=== PATIENT | male | born 1960 | race Caucasian/White ===

== ENCOUNTER 2021-02-10 14:46 | Outpatient (CLI) | payer BC | END 2021-02-10 14:47 | disposition home or self-care (01) | LOC: ULT 14:46 | PROVIDERS: ATTEND Family Medicine | DX: R60.0 Localized edema (principal); L03.116 Cellulitis of left lower limb ==

== ENCOUNTER 2021-11-30 14:44 | Outpatient (CLI) | payer BC | END 2021-11-30 14:45 | disposition home or self-care (01) | LOC: SCSRAD 14:44 | PROVIDERS: ATTEND Family Medicine | DX: Z00.00 Encounter for general adult medical examination without abnormal findings (principal); R06.02 Shortness of breath | CPT/HCPCS: 71046 ==

== ENCOUNTER 2023-05-31 13:58 | Emergency (ER) | payer BC, OTHER ==
[2023-05-31 14:49] LABS: #Eosinphils 0.2 thou/uL (0.0-0.7); #Monocytes 0.8 thou/uL (0.11-0.59); #Neutrophils 5.4 thou/uL (1.40-6.50); %Basophils 0.4 % (0.0-1.0); %Eosinophils 2.4 % (0.0-10.0); %Lymphocytes 22.4 % (21.0-51.0); %Monocytes 9.3 % (0.0-10.0); Hematocrit 41.7 % (42.0-52.0); Hemoglobin 14.5 g/dL (14.0-18.0); Mean Corpuscular HGB CONC 34.8 g/dL (32.0-36.0); Mean Corpuscular Hemoglobin 32.7 pg (27.0-31.0); Mean Corpuscular Volume 93.9 fl (78.0-98.0); Mean Platelet Volume 9.5 fL (7.4-10.4); Platelet Count 187 10x3/uL (130-400); RBC Distribution Width 12.6 % (11.5-14.5); Red Blood Cell (RBC) Count 4.44 mill/uL (4.70-6.10); White Blood Cell (WBC) Count 8.3 10x3/uL (4.8-10.8)
[2023-05-31] MEDS ORDERED: Iopamidol-370 76% 500 ML MDV (1 ML CHARGE) ONE (14:58)
[2023-05-31 15:14] LABS: ALT (SGPT) 26 U/L (8-55); AST (SGOT) 24 U/L (5-34); Albumin 4.1 g/dL (3.4-4.8); Alkaline Phosphatase 86 U/L (40-110); Anion Gap 13 mmol/L (10-20); BUN (Urea Nitrogen) 10 mg/dL (8.4-25.7); Bilirubin, Total 0.5 mg/dL (0.2-1.2); Calc. Creatinine Clearance 0 mL/min (70-130); Calcium 9.3 mg/dL (7.8-10.44); Carbon Dioxide 29 mmol/L (23-31); Chloride 95 mmol/L (98-107); Estimated GFR 68; Globulin 3.3 g/dL (2.4-3.5); Glucose 382 mg/dL (80-115); Potassium 4.5 mmol/L (3.5-5.1); Protein, Total 7.4 g/dL (5.8-8.1); Sodium 132 mmol/L (136-145)
[2023-05-31 15:19] LABS: Troponin I 0.016 ng/mL (< 0.028)
== END 2023-05-31 15:56 | disposition home or self-care (01) ==
LOC: ERS 13:58
DX: R06.00 Dyspnea, unspecified (principal); I25.10 Atherosclerotic heart disease of native coronary artery without angina pectoris; R03.0 Elevated blood-pressure reading, without diagnosis of hypertension; E11.65 Type 2 diabetes mellitus with hyperglycemia; F17.290 Nicotine dependence, other tobacco product, uncomplicated; Z79.899 Other long term (current) drug therapy; Z51.81 Encounter for therapeutic drug level monitoring; R06.02 Shortness of breath; R60.0 Localized edema; R25.2 Cramp and spasm
CPT/HCPCS: 36415; 36416; 71275; 80048; 83735; 83880; 84484; 85025; 85379; 93005; Q9967

== ENCOUNTER 2023-06-14 08:00 | Inpatient (IN) | payer OTHER ==
[2023-06-14 08:10] VITALS: BMI 36.9
[2023-06-14 09:02] LABS: Hematocrit 44.3 % (38.8-50.0); Hemoglobin 16.3 g/dL (13.5-17.5); Mean Corpuscular HGB CONC 36.8 g/dL (32.0-36.0); Mean Corpuscular Hemoglobin 33.1 pg (27.0-33.0); Mean Corpuscular Volume 89.9 fl (81.2-95.1); Mean Platelet Volume 9.5 fl (7.4-10.4); Platelet Count 265 10x3/uL (150-450); RBC Distribution Width 11.9 % (11.5-14.5); Red Blood Cell (RBC) Count 4.93 10x6/uL (4.32-5.72); White Blood Cell (WBC) Count 9.4 10x3/uL (3.5-10.5)
[2023-06-14 09:20] LABS: Anion Gap 14 mmol/L (10-20); BUN (Urea Nitrogen) 11 mg/dL (8.4-25.7); Calc. Creatinine Clearance 0 mL/min (70-130); Calcium 9.6 mg/dL (7.8-10.44); Carbon Dioxide 27 mmol/L (23-31); Chloride 87 mmol/L (98-107); Estimated GFR 79; Glucose 243 mg/dL (80-115); Potassium 3.9 mmol/L (3.5-5.1); Sodium 124 mmol/L (136-145)
[2023-06-14 09:48] LABS: PTT 27.4 sec (22.0-33.0); Prothrombin Time 10.7 sec (9.5-12.1)
[2023-06-17] MEDS ORDERED: EPINEPHrine 1 MG/ML VIAL ONE (06:29)
[2023-06-17] MEDS ORDERED: Albumin 5% 500 ML ONE (06:29)
[2023-06-17] MEDS ORDERED: Dexamethasone 4 mg/ml Vial ONE (06:29)
[2023-06-17] MEDS ORDERED: Bupivacaine PF 0.5% 30 ML VIAL ONE (06:29)
[2023-06-17] MEDS ORDERED: Heparin 10,000 UNITS/1 ML VIAL 30,000 UNITS in Sodium Chloride 0.9% 1,000 ML FS SCH (06:45)
[2023-06-17] MEDS ORDERED: Lidocaine 1% MPF 2 ML VIAL ONE (07:07)
[2023-06-17] MEDS ORDERED: Midazolam HCl 2 mg/2 ml Vial ONE ×4 (07:07→11:28)
[2023-06-17] MEDS ORDERED: Sodium Chloride 0.9% 10 ML ONE (07:11)
[2023-06-17] MEDS ORDERED: Heparin 5,000 UNITS/ML VIAL ONE (07:18)
[2023-06-17] MEDS ORDERED: Thrombin 5000 UNITS/5 ML VIAL ONE (07:18)
[2023-06-17] MEDS ORDERED: Magnesium 5 GM/10 ML VIAL ONE (07:18)
[2023-06-17] MEDS ORDERED: Mannitol 12.5 GM/50 ML ONE (07:18)
[2023-06-17] MEDS ORDERED: Potassium Chloride 60 mEq (30 mL) VIAL ONE (07:18)
[2023-06-17] MEDS ORDERED: Cardioplegic Soln 1,000 ML BAG ONE (07:18)
[2023-06-17] MEDS ORDERED: Papaverine 60 MG/2 ML VIAL ONE (07:18)
[2023-06-17] MEDS ORDERED: Aminocaproic Acid 5 GM/20 ML VIAL ONE (07:18)
[2023-06-17] MEDS ORDERED: Calcium Chloride 1 GM/10 ML Abboject SYRINGE ONE (07:18)
[2023-06-17] MEDS ORDERED: Heparin 30,000 units/30 ml VIAL ONE (07:18)
[2023-06-17] MEDS ORDERED: Protamine Sulfate 250 MG/25 ML VIAL ONE (07:18)
[2023-06-17] MEDS ORDERED: Lidocaine 2% PF 100 mg/5 ml Syringe ONE (07:18)
[2023-06-17] MEDS ORDERED: Sodium Bicarb 50 mEq/50 ML VIAL ONE (07:18)
[2023-06-17] MEDS ORDERED: Vancomycin 1 GM VIAL ONE (07:18)
[2023-06-17] MEDS ORDERED: CEFAZOLIN 2 GM VIAL ONE (07:21)
[2023-06-17] MEDS ORDERED: Sodium Chloride 0.9% 100 ML ONE (07:22)
[2023-06-17] MEDS ORDERED: Fentanyl 250 MCG/5 ML VIAL ONE (07:34)
[2023-06-17] MEDS ORDERED: PROPOFOL 20 ML ONE (07:35)
[2023-06-17] MEDS ORDERED: Rocuronium Bromide 10 MG/ML (10ML VIAL) ONE ×2 (07:38→09:10)
[2023-06-17] MEDS ORDERED: PHENYLEPHRINE-NS 100 MCG/ML 10 ML SYRINGE ONE ×2 (07:38→09:00)
[2023-06-17] MEDS ORDERED: Insulin Regular 300 UNITS/3 ML VIAL ONE (08:19)
[2023-06-17] MEDS ORDERED: ePHEDrine Sulfate 50 MG/10 ML VIAL ONE (08:26)
[2023-06-17] MEDS ORDERED: fentaNYL PF 100 MCG/2 ML SYRINGE ONE (11:43)
[2023-06-17] MEDS ORDERED: Guaifenesin DM 100-10/5 ML UDCUP PO PRN (12:04)
[2023-06-17] MEDS ORDERED: Potassium Chloride 20 MEQ (100 mL) BAG IVPB PRN (12:04)
[2023-06-17] MEDS ORDERED: Acetaminophen 325 MG TAB PO PRN (12:04)
[2023-06-17] MEDS ORDERED: Mag-Al 1200 mg/1200 mg/30 ML UDCUP PO PRN (12:04)
[2023-06-17] MEDS ORDERED: NOREPINEPHRINE 8 MG/250 ML-D5W 250 ML IVPB PRN (12:04)
[2023-06-17] MEDS ORDERED: Bisacodyl 10 MG SUPP PR PRN (12:04)
[2023-06-17] MEDS ORDERED: Bisacodyl 5 MG TAB PO PRN (12:04)
[2023-06-17] MEDS ORDERED: Ondansetron PF 4 MG/2 ML Vial IVP PRN (12:04)
[2023-06-17] MEDS ORDERED: Ipratropium/Albuterol 3 ML NEB NEB PRN (12:04)
[2023-06-17] MEDS ORDERED: Post-Op Insulin Drip Protocol IVPB SCH (12:04)
[2023-06-17] MEDS ORDERED: Albumin 5% 12.5 GM (250 mL) BOT IVPB PRN (12:04)
[2023-06-17] MEDS ORDERED: Promethazine HCl 25 MG/ML VIAL IM PRN (12:04)
[2023-06-17] MEDS ORDERED: fentaNYL 50 mcg/mL 1 mL Vial SLOW IVP PRN (12:04)
[2023-06-17 12:38] LABS: Actual Bicarbonate (HCO3a) 22.6 mEq/L (22-28); Base Excess (BEa) -4.2 mEq/L (-2.0 to +3.0); CO2 Tension 48.5 mmHg (35.0-45.0); Calcium, Ionized (arterial) 1.18 mmol/L (1.12-1.30); Carboxyhemoglobin (COHb) 0.6 gm% (0.0-3.0); Hematocrit-ABG 37 % (42.0-52.0); Hemoglobin (Hb) 12.7 g/dL (14.0-18.0); O2 Tension (PaO2), arterial 82.4 mmHg (> 80.0); Potassium - ABG Lab 4.43 mmol/L (3.70-5.30); pH, Arterial 7.287 (7.35-7.45)
[2023-06-17 12:40] LABS: ALV-art Gradient 213.475 mmHg (0-20); Puncture Site Arterial Line
[2023-06-17] MEDS ORDERED: Dextrose 5% in Water 1,000 ML IV PRN (12:45)
[2023-06-17] MEDS ORDERED: Glucagon 1 MG/ML KIT SC PRN (12:45)
[2023-06-17] MEDS ORDERED: Dextrose 50% Abboject 50 ML SYRINGE SLOW IVP PRN (12:45)
[2023-06-17 13:08] LABS: #Basophils 0.1 thou/uL (0.0-0.2); #Eosinphils 0.2 thou/uL (0.0-0.7); #Monocytes 1.5 thou/uL (0.11-0.59); #Neutrophils 17.1 thou/uL (1.40-6.50); %Basophils 0.4 % (0.0-1.0); %Eosinophils 0.7 % (0.0-10.0); %Lymphocytes 7.5 % (21.0-51.0); %Monocytes 7.1 % (0.0-10.0); %Neutrophils 81.9 % (42.0-75.0); Hematocrit 34.6 % (42.0-52.0); Hemoglobin 11.9 g/dL (14.0-18.0); Mean Corpuscular HGB CONC 34.4 g/dL (32.0-36.0); Mean Corpuscular Volume 95.8 fl (78.0-98.0); Mean Platelet Volume 9.3 fL (7.4-10.4); Platelet Count 181 10x3/uL (130-400); Red Blood Cell (RBC) Count 3.61 mill/uL (4.70-6.10); White Blood Cell (WBC) Count 20.9 10x3/uL (4.8-10.8)
[2023-06-17] MEDS: Sodium Chloride 0.9% 1,000 ML IV SCH (13:14)
[2023-06-17] MEDS: Magnesium 2 GM/50 ML(in water) 2 GM in Premix 1 BAG IVPB SCH (13:14)
[2023-06-17] MEDS: Heparin 5,000 UNITS/ML VIAL SC SCH (13:15)
[2023-06-17] MEDS: Aspirin Chewable 81 MG TAB PO SCH (13:15)
[2023-06-17] MEDS: Morphine 2 MG/ML VIAL SLOW IVP PRN (13:23)
[2023-06-17 13:24] LABS: INR-International Normal Ratio 1.2; PTT 27.1 sec (22.9-36.1); Prothrombin Time 15.6 sec (12.0-14.7)
[2023-06-17] MEDS: hydrALAZINE 20 MG/ML VIAL SLOW IVP PRN (13:29)
[2023-06-17 13:33] LABS: Anion Gap 12 mmol/L (10-20); BUN (Urea Nitrogen) 7 mg/dL (8.4-25.7); Calc. Creatinine Clearance 122 mL/min (70-130); Carbon Dioxide 24 mmol/L (23-31); Chloride 106 mmol/L (98-107); Estimated GFR 89; Glucose 203 mg/dL (80-115); Potassium 4.6 mmol/L (3.5-5.1); Sodium 137 mmol/L (136-145)
[2023-06-17] MEDS ORDERED: niCARdipine 25 MG in Sodium Chloride 0.9% 250 ML 250 ML IVPB SCH (13:45)
[2023-06-17 14:06] LABS: Actual Bicarbonate (HCO3a) 22.4 mEq/L (22-28); Base Excess (BEa) -3.5 mEq/L (-2.0 to +3.0); CO2 Tension 43.8 mmHg (35.0-45.0); Calcium, Ionized (arterial) 1.18 mmol/L (1.12-1.30); Carboxyhemoglobin (COHb) 0.6 gm% (0.0-3.0); Hematocrit-ABG 38 % (42.0-52.0); O2 Tension (PaO2), arterial 65.6 mmHg (> 80.0); Potassium - ABG Lab 4.54 mmol/L (3.70-5.30); pH, Arterial 7.327 (7.35-7.45)
[2023-06-17 14:07] LABS: Puncture Site Arterial Line
[2023-06-17] MEDS: Albumin 5% 12.5 GM (250 mL) BOT IVPB PRN (14:07)
[2023-06-17] MEDS: CEFAZOLIN 2 GM in Sodium Chloride 0.9% 100 ML IVPB SCH (14:15)
[2023-06-17] MEDS: fentaNYL 50 mcg/mL 1 mL Vial SLOW IVP PRN (14:20)
[2023-06-17] MEDS: HYDROcodone/Acetaminophen 5/325 mg Tablet PO PRN ×2 (16:01→21:03)
[2023-06-17] MEDS: Ketorolac Tromethamine 30 MG (1 mL) VIAL IVP SCH (16:53)
[2023-06-17 18:17] LABS: Hemoglobin 11.2 g/dL (14.0-18.0)
[2023-06-17 18:44] LABS: Potassium 4.7 mmol/L (3.5-5.1)
[2023-06-17] MEDS: Atorvastatin Calcium 20 MG TAB PO SCH (20:14)
[2023-06-17] MEDS: Gabapentin 300 MG CAP PO SCH (20:14)
[2023-06-17] MEDS: Famotidine/PF 20 mg/2ml Vial SLOW IVP SCH (20:15)
[2023-06-17] MEDS: HUMULIN R 100 UNITS in Sodium Chloride 0.9% 100 ML IVPB SCH (21:13)
[2023-06-18 04:58] LABS: %Basophils 0.2 % (0.0-1.0); %Lymphocytes 8.1 % (21.0-51.0); %Monocytes 7.3 % (0.0-10.0); %Neutrophils 83.8 % (42.0-75.0); Hematocrit 28.2 % (42.0-52.0); Hemoglobin 9.6 g/dL (14.0-18.0); Mean Corpuscular Volume 96.9 fl (78.0-98.0); Mean Platelet Volume 9.6 fL (7.4-10.4); Platelet Count 153 10x3/uL (130-400); RBC Distribution Width 12.1 % (11.5-14.5); Red Blood Cell (RBC) Count 2.91 mill/uL (4.70-6.10); White Blood Cell (WBC) Count 13.2 10x3/uL (4.8-10.8)
[2023-06-18 05:09] LABS: Anion Gap 12 mmol/L (10-20); BUN (Urea Nitrogen) 8 mg/dL (8.4-25.7); Calc. Creatinine Clearance 137 mL/min (70-130); Calcium 7.5 mg/dL (7.8-10.44); Carbon Dioxide 22 mmol/L (23-31); Chloride 106 mmol/L (98-107); Estimated GFR 97; Glucose 118 mg/dL (80-115); Potassium 4.6 mmol/L (3.5-5.1); Sodium 135 mmol/L (136-145)
[2023-06-18] MEDS: Aspirin 325 MG TAB PO SCH (07:28)
[2023-06-18] MEDS: Magnesium 2 GM/50 ML(in water) 2 GM in Premix 1 BAG IVPB SCH (07:30)
[2023-06-18] MEDS: Furosemide 40 MG TAB PO SCH (13:00)
[2023-06-18] MEDS: Insulin Regular 300 UNITS/3 ML VIAL SC PRN (13:00)
[2023-06-18] MEDS: Famotidine 20 MG TAB PO SCH (20:28)
[2023-06-18] MEDS: Metoprolol Tartrate 25 MG TAB PO SCH (20:28)
[2023-06-19 04:36] LABS: #Basophils 0.1 thou/uL (0.0-0.2); #Eosinphils 0.2 thou/uL (0.0-0.7); #Monocytes 1.3 thou/uL (0.11-0.59); %Basophils 0.4 % (0.0-1.0); %Eosinophils 1.7 % (0.0-10.0); %Lymphocytes 19.7 % (21.0-51.0); %Neutrophils 66.5 % (42.0-75.0); Hematocrit 30.2 % (42.0-52.0); Mean Corpuscular HGB CONC 33.1 g/dL (32.0-36.0); Mean Corpuscular Hemoglobin 32.9 pg (27.0-31.0); Mean Corpuscular Volume 99.3 fl (78.0-98.0); Mean Platelet Volume 9.7 fL (7.4-10.4); Platelet Count 151 10x3/uL (130-400); RBC Distribution Width 12.5 % (11.5-14.5); Red Blood Cell (RBC) Count 3.04 mill/uL (4.70-6.10); White Blood Cell (WBC) Count 12.1 10x3/uL (4.8-10.8)
[2023-06-19 04:50] LABS: Anion Gap 9 mmol/L (10-20); BUN (Urea Nitrogen) 10 mg/dL (8.4-25.7); Calc. Creatinine Clearance 141 mL/min (70-130); Calcium 8.3 mg/dL (7.8-10.44); Carbon Dioxide 26 mmol/L (23-31); Chloride 103 mmol/L (98-107); Estimated GFR 97; Glucose 150 mg/dL (80-115); Potassium 4.5 mmol/L (3.5-5.1); Sodium 133 mmol/L (136-145)
[2023-06-19] MEDS: Glimepiride 4 MG TAB PO SCH (07:52)
[2023-06-19] MEDS: Loperamide HCl 2 MG CAP PO PRN (18:15)
[2023-06-20 04:23] LABS: #Basophils 0.1 thou/uL (0.0-0.2); #Eosinphils 0.3 thou/uL (0.0-0.7); #Monocytes 1.2 thou/uL (0.11-0.59); #Neutrophils 6.7 thou/uL (1.40-6.50); %Basophils 0.6 % (0.0-1.0); %Eosinophils 2.8 % (0.0-10.0); %Lymphocytes 23.1 % (21.0-51.0); %Monocytes 11.1 % (0.0-10.0); %Neutrophils 61.7 % (42.0-75.0); Hematocrit 31.8 % (42.0-52.0); Hemoglobin 10.6 g/dL (14.0-18.0); Mean Corpuscular HGB CONC 33.3 g/dL (32.0-36.0); Mean Corpuscular Hemoglobin 32.6 pg (27.0-31.0); Mean Corpuscular Volume 97.8 fl (78.0-98.0); Mean Platelet Volume 9.7 fL (7.4-10.4); Platelet Count 163 10x3/uL (130-400); RBC Distribution Width 12.5 % (11.5-14.5); Red Blood Cell (RBC) Count 3.25 mill/uL (4.70-6.10); White Blood Cell (WBC) Count 10.8 10x3/uL (4.8-10.8)
[2023-06-20 04:53] LABS: Anion Gap 11 mmol/L (10-20); BUN (Urea Nitrogen) 11 mg/dL (8.4-25.7); Calc. Creatinine Clearance 122 mL/min (70-130); Calcium 8.3 mg/dL (7.8-10.44); Carbon Dioxide 26 mmol/L (23-31); Chloride 102 mmol/L (98-107); Estimated GFR 81; Glucose 133 mg/dL (80-115); Potassium 3.9 mmol/L (3.5-5.1); Sodium 135 mmol/L (136-145)
[2023-06-20] MEDS: Furosemide 40 MG (4 mL) VIAL SLOW IVP SCH ×3 (10:39→14:58)
[2023-06-21 04:28] LABS: #Eosinphils 0.4 thou/uL (0.0-0.7); %Basophils 0.5 % (0.0-1.0); %Eosinophils 4.3 % (0.0-10.0); %Lymphocytes 23.8 % (21.0-51.0); %Monocytes 11.4 % (0.0-10.0); %Neutrophils 59.2 % (42.0-75.0); Hematocrit 30.8 % (42.0-52.0); Hemoglobin 10.3 g/dL (14.0-18.0); Mean Corpuscular HGB CONC 33.4 g/dL (32.0-36.0); Mean Corpuscular Hemoglobin 32.8 pg (27.0-31.0); Mean Corpuscular Volume 98.1 fl (78.0-98.0); Mean Platelet Volume 9.4 fL (7.4-10.4); Platelet Count 164 10x3/uL (130-400); RBC Distribution Width 12.6 % (11.5-14.5); Red Blood Cell (RBC) Count 3.14 mill/uL (4.70-6.10); White Blood Cell (WBC) Count 8.4 10x3/uL (4.8-10.8)
[2023-06-21 04:47] LABS: Anion Gap 11 mmol/L (10-20); BUN (Urea Nitrogen) 9 mg/dL (8.4-25.7); Calc. Creatinine Clearance 128 mL/min (70-130); Calcium 8.5 mg/dL (7.8-10.44); Carbon Dioxide 28 mmol/L (23-31); Chloride 100 mmol/L (98-107); Estimated GFR 88; Glucose 136 mg/dL (80-115); Sodium 135 mmol/L (136-145)
[2023-06-21 09:10] VITALS: BP 149/82; TEMP 97.5
== END 2023-06-21 11:42 | disposition home or self-care (01) | DRG 236 ==
LOC: SURG A 06-17 06:07 → EDSTATUS 06-17 08:00 → CCU 06-17 12:02 → 2NO 06-19 20:17
PROVIDERS: ADMIT Student in an Organized Health Care Education/Training Program; ATTEND Student in an Organized Health Care Education/Training Program
PROC: 02100Z9 Bypass Coronary Artery, One Artery from Left Internal Mammary, Open Approach (ICD-10-PCS; principal; 2023-06-17)
PROC: 021109W Bypass Coronary Artery, Two Arteries from Aorta with Autologous Venous Tissue, Open Approach (ICD-10-PCS; 2023-06-17)
PROC: 06BQ4ZZ Excision of Left Saphenous Vein, Percutaneous Endoscopic Approach (ICD-10-PCS; 2023-06-17)
PROC: 5A1221Z Performance of Cardiac Output, Continuous (ICD-10-PCS; 2023-06-17)
PROC: 02L70CK Occlusion of Left Atrial Appendage with Extraluminal Device, Open Approach (ICD-10-PCS; 2023-06-17)
PROC: 4A133R1 Monitoring of Arterial Saturation, Peripheral, Percutaneous Approach (ICD-10-PCS; 2023-06-17)
PROC: 3E033XZ Introduction of Vasopressor into Peripheral Vein, Percutaneous Approach (ICD-10-PCS; 2023-06-17)
PROC: 30233J1 Transfusion of Nonautologous Serum Albumin into Peripheral Vein, Percutaneous Approach (ICD-10-PCS; 2023-06-17)
DX: I25.110 Atherosclerotic heart disease of native coronary artery with unstable angina pectoris (principal); E66.9 Obesity, unspecified; I12.9 Hypertensive chronic kidney disease with stage 1 through stage 4 chronic kidney disease, or unspecified chronic kidney disease; N18.2 Chronic kidney disease, stage 2 (mild); E11.22 Type 2 diabetes mellitus with diabetic chronic kidney disease; E78.00 Pure hypercholesterolemia, unspecified; Z86.73 Personal history of transient ischemic attack (TIA), and cerebral infarction without residual deficits; Z82.49 Family history of ischemic heart disease and other diseases of the circulatory system; Z87.891 Personal history of nicotine dependence; Z68.39 Body mass index [BMI] 39.0-39.9, adult
CPT/HCPCS: 36415; 36416; 36430; 71045; 71046; 80048; 82805; 85025; 85027; 85610; 85730; 86850; 86900; 86901; 93005; 93010; 93798; 94002; A4311; A4648; C1751; J0171; J0360; J0665; J1100; J1642; J1644; J1815; J1885; J1940; J2001; J2150; J2250; J2272; J2440; J2704; J2720; J3010; J3370; J3475; J3480; J3490; J7050; P9045; S0017; S0028